=== PATIENT | male | born 1990 | race African-American/Black ===

== ENCOUNTER 2018-06-14 00:50 | Inpatient (IN) ==
[2018-06-14] MEDS ORDERED: LORazepam 0.5 MG Tablet PO ONE (01:30)
--- NOTE | 2018-06-14 01:34 | ED ---
HPI General Chief complaint: Psychiatric Symptoms Stated complaint: psych eval/Vsco Time Seen by Provider: 06/14/18 00:56 Source: patient and police Mode of arrival: EMS Limitations: no limitations History of Present Illness HPI Narrative: Patient presents to our facility under a Dia act/transfer from [facility]. Patient was Dia acted due to being a harm to himself due to being bipolar/schizophrenic and not being on medications for multiple months. Patient states that he has been wanting to harm himself or others. Patient also states that he has not slept in 3 days MD complaint: Reports medical clearance requested Alleged Intoxication: No Compliant with Home Medications: No Traumatic Symptoms: Reports denies traumatic injury and head injury Associated Symptoms: Denies chest pain, shortness of breath, palpitations, diaphoresis, confusion, fever/chills, headaches, anorexia and malaise Treatments Prior to Arrival: Reports none Home Medications Medication Instructions Recorded Confirmed No Known Home Medications 06/14/18 06/14/18 Allergies Allergy/AdvReac Type Severity Reaction Status Date / Time No Known Allergies Allergy Verified 06/14/18 00:59 Review of Systems ROS: all other systems reviewed are negative [facility] Medical History Medical History Bipolar disorder (Acute) Schizophrenia (Acute) Surgical History Surgical History No history of previous surgery (Acute) Social History Social History Substance History: Active Abuse Second Hand Smoke Exposure: No Smoking Status: Current every day smoker Tobacco Type: Cigarettes How Often Do You Have a Drink Containing Alcohol: 2 to 4 times a month Recent Travel in [facility] within the Last 8 Weeks: No Recent Out of Country Travel within the Last 8 Weeks: No Exam HENMT Head: normocephalic and atraumatic Nose: no nasal discharge and no epistaxis Mouth: moist mucous membranes Eyes Sclera: normal sclerae Pupils: PERRL Neck Neck: trachea midline and no JVD Resp Effort & Inspection: no use of accessory muscles Auscultation: clear to auscultation bilaterally Cardio Rate: regular rate Rhythm: regular rhythm Heart Sounds: no murmurs GI Inspection: non-distended Palpation: soft, no hepatosplenomegaly and nontender Skin General: dry skin (warm) Neuro General: alert and awake Cranial Nerves: other Speech: speech normal Motor: no movement abnormalities noted Extrem General: normal to inspection, no clubbing, no cyanosis and no edema Psych Mood: congruent mood Affect: normal affect Judgment: judgment good Course Initial Documented Vital Signs Temperature 98.2 F 06/14/18 01:14 Pulse Rate 67 06/14/18 01:14 Respiratory Rate 18 06/14/18 01:14 Blood Pressure 143/93 H 06/14/18 01:14 Pulse Oximetry 100 06/14/18 01:14 Last Documented Vital Signs Temperature 98.2 F 06/14/18 01:23 Pulse Rate 67 06/14/18 01:23 Respiratory Rate 18 06/14/18 01:23 Blood Pressure 143/93 H 06/14/18 01:23 Pulse Oximetry 100 06/14/18 01:23 Medical Decision Making MDM Narrative Medical decision making narrative: Patient presents to our facility under a Dia act/transfer from [facility]. Patient was Dia acted due to being a harm to himself due to being bipolar/schizophrenic and not being on medications for multiple months. Patient states that he has been wanting to harm himself or others. Patient also states that he has not slept in 3 days Patient's vital signs upon arrival are within normal limits. Blood pressure is 143/90, pulse is 67, temperature is 98.2, O2 sat is 100% on room air Lab work reviewed from earlier [facility]. White blood cell count is 6.5, hemoglobin is 14.6, creatinine is 1.19, BUN is 18.1, urine drug screen is negative, alcohol is negative Patient is asking for something to help him sleep/to help with his anxiety. Patient has no complaints upon arrival to our hospital Patient will receive 0.5 mg of Ativan Patient remains medically cleared Medical Screen Exam Complete: Yes Emergency Medical Condition: Yes Discharge Plan Discharge Disposition Patient Disposition: Sign Out(ED Internal Use Only) Discharge Condition Condition: Stable Discharge Details Diagnosis: Chronic schizophrenia, Acute psychosis Physicians Team ED Provider: Mauro Bose ED Midlevel Provider: Brenda Russell Primary Care Provider: Primary Care Elena Blanc Rxs /Orders / Referrals /Forms Prescriptions: No Action No Known Home Medications RF: 0 Status ED Status: Medically Cleared
[2018-06-14] MEDS ORDERED: Aluminum/Magnesium/Simethacone Susp 30 ML UDC PO PRN (10:50)
--- NOTE | 2018-06-14 10:53 | ED ---
HPI - Psych - General Time Seen by Psych Provider: 10:20 Source: patient, police Mode of arrival: EMS Limitations: no limitations - History of Present Illness MD complaint: other Onset (ago): day(s) Duration: constant History of same: Yes Relieving factors: medication Exacerbating factors: other Context: not taking psychiatric medications Associated psychiatric symptoms: other (Manic behavior) Associated symptoms: denies other symptoms Treatments prior to arrival: placed on mental health hold, other (Patient was medicated at [facility] with Ativan) If self harm: other (Denies any) - General Chief Complaint: Psychiatric Symptoms Stated Complaint: psych eval/Vsco Time Seen by Provider: 06/14/18 00:56 - History of Present Illness HPI Narrative: History of Present Illness HPI Narrative: Patient is a 27-year-old, single, -Nigerien male, with history of bipolar disorder, who presents to our facility under a Dia act/ transfer from [facility] under a professional certificate initiated by psychiatrist Dr Manny Bridges. The patient initially presented to the ED at [facility] accompanied by his girlfriend voluntarily and the girlfriend reported that the patient had been hearing occasional voices, not suicidal, not sleeping for the last [address] Bridges's documentation on the BA and states that the patient has been he has been labile, angry, irritable, significant deterioration in relationship with , expansive and erratic behavior, driving reckless. Review of documentation from Hospital [facility]. We have no previous history with this patient here at [facility]. Since his arrival here to [place] the patient has been singing, pacing, doing push-ups in his room. He has not slept. Patient is seen. He is initially very upbeat. States that he needs to go home because he needs to go to work and celebrate Concepcion with his children. He admits he has not been sleeping for the past 3 days but does not feel that this is any significant problem and that it does not affect him at all. He states "lady that is not your problem. Told to sometimes go without sleeping." He becomes angry very quickly and demands to be discharge because he does not believe that he has any problem. He also demands that I call his father to pick him up. Patient then begins to saying once again. He then refuses to answer any further questions or to proceed with this evaluation. I have contacted his father at [phone], Mr. Denver Valdes. The patient's father states that he does not believe the patient is safe to be discharge since he has had these previous episodes in the past. He also states that the patient refuses to take any kind of psychiatric medication and ask in a very erratic manner. He goes on to state that the patient has formulated charges against him in the past and that he has been under investigation for such charges. (Tyra Espinoza) - Related Data Home Medications Medication Instructions Recorded Confirmed No Known Home Medications 06/14/18 06/14/18 Allergies Allergy/AdvReac Type Severity Reaction Status Date / Time No Known Allergies Allergy Verified 06/14/18 00:59 [facility] - History History Provided By: Patient, Medical Record - Medical History Medical History: Medical History (Last Reviewed 06/14/18 @ 01:33 by Brenda Russell) Bipolar disorder Schizophrenia - Surgical History Surgical History: Surgical History (Last Reviewed 06/14/18 @ 01:33 by Brenda Russell) No history of previous surgery - Social History I have reviewed the patient's Social History: Yes - Tobacco History Second Hand Smoke Exposure: No Tobacco Use In Past 30 Days: Yes Smoking Status: Current every day smoker Tobacco Type: Cigarettes - Alcohol History How Often Do You Have a Drink Containing Alcohol: 2 to 4 times a month - Substance Use History Substance History: Active Abuse - Substance Use Type Marijuana Status: Active Route Used: Inhalation Frequency: 1x every 2 weeks Last Used: 1 week ago Reason for Use: Get High Alcohol Status: Active Route Used: By Mouth Frequency: 6 pack of beer about 1x a week - Travel History Recent Travel in the [facility] Within the Last 8 Weeks: No Recent Travel Out of the Country Within the Last 8 Weeks: No - Immunization History Tetanus Immunization: Unsure Psychiatric History - Psychiatric History Psychiatric Treatment History: History of Psychiatric Treatment, History of Hospitalization in a Psychiatric Facility History of Inpatient Treatment: Yes - Psychiatric History Patient refuses to provide any information to this handbook writer. As per records he has been treated for bipolar disorder in the past but is medication noncompliant. (Tyra Espinoza) - Family Psychiatric History Unknown (Tyra Espinoza) Physical Exam - General Limitations: no limitations Mental Status Examination Consciousness: Alert Orientation: x4 Motor Activity: Normal gait Speech: Rapid Language: Adequate Fund of Knowledge: Adequate Attention and Concentration: Easily distracted Memory: Unremarkable Mood: Angry, Irritable, Manic Affect: Other (labile) Thought Process & Associations: Circumstantial, Tangential Thought Content: Appropriate Hallucination Type: Other (denies but documetnaion indicates he has been experiencing A/H) Delusion Type: None Suicidal Ideation: No Suicidal Plan: No Suicidal Intention: No Homicidal Ideation: No Homicidal Plan: No Homicidal Intention: No Insight: Poor Judgment: Impulsive Initial Documented Vital Signs Temperature 98.2 F 06/14/18 01:14 Pulse Rate 67 06/14/18 01:14 Respiratory Rate 18 06/14/18 01:14 Blood Pressure 143/93 H 06/14/18 01:14 Pulse Oximetry 100 06/14/18 01:14 Last Documented Vital Signs Temperature 97.9 F 06/14/18 04:20 Pulse Rate 62 06/14/18 04:20 Respiratory Rate 18 06/14/18 04:20 Blood Pressure 149/87 H 06/14/18 04:20 Pulse Oximetry 99 06/14/18 04:20 MDM - Psych - Diagnosis (1) Bipolar disorder, manic Code(s): F31.10 - Bipolar disorder, current episode manic without psychotic features, unspecified Status: Acute - [facility] Narrative Medical decision making narrative: At the time of this evaluation the patient presents symptoms consistent with rosario including not sleeping for 3 days, hyperactivity, poor impulse control, lability of affect, engaging in risky behaviors such as driving recklessly. It is also alleged that the patient has not been taking any psychiatric medications. He has demonstrated lability of mood and hyperactivity since here in [facility]. He refused to engage in complete evaluation with this provider and was demanding to be released immediately. The patient is under a professional certificate by area psychiatrist Dr. Bridges. He will be admitted to inpatient psychiatry for further evaluation, stabilization, and safety (Tyra Espinoza)
[2018-06-14] MEDS ORDERED: Influenza (Quadrivalent) Vaccine 0.5 ML Syringe IM ONE (17:00)
[2018-06-15 09:16] LABS: Carbon Dioxide 26.1 meq/L (21.0-32.0); Potassium 3.9 meq/L (3.5-5.1)
[2018-06-15 09:20] LABS: Chol/HDL Ratio 3.72 Ratio; HDL Cholesterol 56.7 mg/dL (40.0-60.0)
--- NOTE | 2018-06-15 12:37 | P.HPPSY ---
Provisional Diagnosis Admission Date: June 14, 2018 10:55 Competence Certification of Person's Competence To Provide Express and Informed Consent I have personally examined Lennie Meadows, a person being served at [facility] on, June 15, 2018 1230. Express and informed consent means consent voluntarily given in writing, by a competent person, after sufficient explanation and disclosure of the subject matter involved to enable the person to make a knowing and willful decision without any element of force, fraud, deceit, duress, or other form of constraint or coercion. This person is 18 years of age or older, is not now known to be incompetent to consent to treatment with a guardian advocate, and does not have a health care surrogate or proxy currently making medical treatment decisions. I have found this person to be one of the following: [] Competent to provide express and informed consent, as defined above, for voluntary admission to this facility and is competent to provide express and informed consent for treatment. He/she has the consistent capacity to make well reasoned, willful, and knowing decisions concerning his or her medical or mental health treatment. The person fully and consistently understands the purpose of the admission for examination/placement and is fully capable of personally exercising all rights assured [place] Incompetent to provide express and informed consent to voluntary admission, and this is incompetent to provide express and informed consent to treatment. The person must be transferred to involuntary status and a petition for a guardian advocate filed with the Circuit Court. [X] Refusing to provide express and informed consent to voluntary admission but is competent to provide express and informed consent for treatment. The person must be discharged or transferred to involuntary status. Form shall be completed within 24 hours of a person's arrival at the receiving facility and filed in the clinical record of each person: 1. Admitted on a voluntary basis 2. Permitted to provide express and informed consent to his/her own treatment 3. Allowed to transfer from involuntary to voluntary status 4. Prior to permitting a person to consent to his or her own treatment after having been previously found incompetent to consent to treatment. History of Present Illness Capacity: Has capacity Chief Complaint: mood History of Present Illness: Patient is a 27-year-old black male with a history of bipolar disorder and possibly schizophrenia presenting here for signs of hypomania. Patient is a member of [facility] but admits to recent poor compliance with his medication. During this interview, he is oppositional and guarded with exam. Affect is blunted and there is psychomotor retardation. There is mild pressured speech Per nursing he slept 7 hours overnight. He denies recent depressed mood. Patient denies suicidal or homicidal ideation intent or plan. Patient says she does have auditory hallucinations of music later in the day after he hears that music. He denies any voices directly talking to him. No paranoid delusions were elicited. Though, he is vigilant on the unit. Patient is a 27-year-old, single, -Togolese male, with history of bipolar disorder, who presents to our facility under a Dia act/transfer from [facility] under a professional certificate initiated by psychiatrist Dr Manny Bridges. The patient initially presented to the ED at [facility] accompanied by his girlfriend voluntarily and the girlfriend reported that the patient had been hearing occasional voices, not suicidal, not sleeping for the last [address] Bridges's documentation on the BA and states that the patient has been he has been labile, angry, irritable, significant deterioration in relationship with , expansive and erratic behavior, driving reckless. Review of documentation from Hospital [facility]. We have no previous history with this patient here at [facility]. Since his arrival here to [facility] the patient has been singing, pacing, doing push-ups in his room. He has not slept. Past psych: Denies any admissions to the [facility]. Patient goes for outpatient treatment to [facility]. Past medications include Abilify, Seroquel, Depakote. Patient feels that Seroquel makes him too sleepy and he does not take it. Patient did well on Latuda in the past. He began with psychiatry after a suicide attempt in 2012 where he pointed a gun at himself. He does not have anymore access to guns. Past medical: See chart Past Famhx: Denies Past Social: Patient uses alcohol and cannabis sporadically. He has a daughter who lives with him. 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 He is not on disability. Patient was discharged honorably from the [employer] in 2013 after serving a year - Inpatient Certification I certify that the inpatient services were ordered in accordance with Medicare regulations governing the order. This includes certification that hospital inpatient services are reasonable and necessary and in the case of services not specified as inpatient-only under 42 CFR 419.22(n), that they are appropriately provided as inpatient services in accordance to with the 2-midnight benchmark under 43 CFR 412.3(e) I certify that inpatient psychiatric hospital services are medically necessary. Evaluation and treatment and/or diagnostic testing are expected to improve the patient's condition. The patient needs on a daily basis, active treatment furnished directly by or requiring the supervision of inpatient psychiatric facility personnel. Estimated Total Length of Stay (Days): 8 Plans for Post Hospital Care: Home Review of Systems All other systems reviewed negative except as stated in HPI PMFSH - History History Provided By: Patient - Medical History Medical History: Medical History (Last Reviewed 06/14/18 @ 01:33 by Brenda Russell) Bipolar disorder Schizophrenia - Surgical History Surgical History: Surgical History (Last Reviewed 06/14/18 @ 01:33 by Brenda Russell) No history of previous surgery - Tobacco History Second Hand Smoke Exposure: Yes Tobacco Use In Past 30 Days: Yes Smoking Status: Current every day smoker Tobacco Type: Cigarettes - Alcohol History How Often Do You Have a Drink Containing Alcohol: 2 to 4 times a month - Substance Use History Substance History: Active Abuse - Substance Use Type Marijuana Status: Active Route Used: Inhalation Frequency: daily Last Used: this week sometime Reason for Use: Calm Down, Feels Good, Socialization Alcohol Status: Active Route Used: By Mouth Frequency: 2-4 times a month Reason for Use: Calm Down, Feels Good, Socialization - Travel History Recent Travel in the [place] Within the Last 8 Weeks: No Recent Travel Out of the Country Within the Last 8 Weeks: No - Immunization History Tetanus Immunization: Unsure Hx Influenza Vaccine This Season: No Medications and Allergies Active Medications: Active Medications Al Hydrox/Mg Hydrox/Simethicone (Mag-Al Plus Susp Liq) 30 ml PO Q6H PRN PRN Reason: DYSPEPSIA Al Hydroxide/Mg Hydroxide (Milk Of Magnesia Liq) 30 ml PO Q12H PRN PRN Reason: Mild Constipation Diphenhydramine HCl (Benadryl Inj) 50 mg IM Q6H PRN PRN Reason: For mild anxiety and/or EPS Lactulose (Lactulose Liq) 30 ml PO DAILY PRN PRN Reason: SEVERE CONSITIPATION Lorazepam (Ativan Inj) 1 mg IM Q6H PRN PRN Reason: MODERATE TO SEVERE ANXIETY Lurasidone HCl (Latuda) 60 mg PO DAILY HERLINDA Sennosides (Senokot) 17.2 mg PO Q12H PRN PRN Reason: Moderate Constipation Ziprasidone (Geodon Inj) 10 mg IM Q12H PRN PRN Reason: SEVERE AGITATION Allergies Allergy/AdvReac Type Severity Reaction Status Date / Time No Known Allergies Allergy Verified 06/14/18 00:59 Home Medications Medication Instructions Recorded Confirmed Type No Known Home Medications 06/14/18 06/14/18 History Results - Labs CBC & Chem 7: 06/15/18 08:23 Labs: Laboratory Results - last 24 hr 06/15/18 08:23 Sodium 141 Potassium 3.9 Chloride 106 Carbon Dioxide 26.1 Anion Gap 9 BUN 16 Creatinine 1.28 Estimated GFR 83 L Random Glucose 104 Calcium 9.0 Triglycerides 73 Cholesterol 211 H LDL Cholesterol, Calc 140 H HDL Cholesterol 56.7 Cholesterol/HDL Ratio 3.72 Exam Vital signs: Vital Signs 06/15/18 06:00 Temperature 97.8 F Pulse Rate 91 H Respiratory Rate 19 Blood Pressure 144/90 H Pulse Oximetry 96 Intake & Output 06/14/18 06/15/18 06/15/18 18:59 06:59 18:59 Weight 78.5 kg Other: Weight On Admission 78.5 kg Mental Status Examination Appearance: Appropriate Consciousness: Vigilant Orientation: x4 Motor Activity: Normal gait Speech: Rapid Language: Adequate Fund of Knowledge: Adequate Attention and Concentration: Adequate Memory: Unremarkable Mood: Appropriate Affect: Blunt Thought Process & Associations: Disorganized Thought Content: Appropriate, Hallucinations Hallucination Type: Auditory (At times he hears music), Other (denies but documetnaion indicates he has been experiencing A/H) Delusion Type: None Suicidal Ideation: No Suicidal Plan: No Suicidal Intention: No Homicidal Ideation: No Homicidal Plan: No Homicidal Intention: No Insight: Poor Judgment: Poor Assessment and Plan - Assessment (1) Bipolar disorder, manic Code(s): F31.10 - Bipolar disorder, current episode manic without psychotic features, unspecified Status: Acute - Plan Plan: It appears that manic symptoms have improved since his initial admission. Either way, psychoeducation was done about the importance of compliance with medication given his history of bipolar and possible schizophrenia. Patient gives consent for Latuda 60 mg daily with food. As needed trazodone for sleep. Refuses to sign voluntary, will be petitioned Justification for Continued Inpatient Stay: Patient would decompensate in a less restrictive setting
--- NOTE | 2018-06-15 16:32 | P.PNPSY ---
Subjective Chief Complaint: mood Remarks: The patient was seen for the purpose of providing a second opinion to the Dia act order. Chart reviewed to include emergency department paperwork and the attending's history and physical. Patient discussed with nursing staff; we reviewed the patient's mood, thoughts, and behaviors since arrival to the unit. The patient reportedly has been cooperative with care but displaying odd behaviors such as exercising in the day room. Patient was seen at bedside this afternoon where he was laying in bed with the covers pulled over his head. He responded quickly to name and did not appear to be sleeping. He acknowledges having an episode of decreased need for sleep because concern for his girlfriend and he blames her for being Dia acted. He admits to recurrent episodes in the past diagnosis of bipolar disorder but he minimized the severity of the symptoms and he expressed a belief that he did not need psychiatric treatment. Review of Systems All other systems reviewed negative except as stated in HPI Mental Status Examination Appearance: Appropriate Consciousness: Vigilant Orientation: x4 Motor Activity: Normal gait Speech: Rapid Language: Adequate Fund of Knowledge: Adequate Attention and Concentration: Adequate Memory: Unremarkable Mood: Appropriate Affect: Blunt Thought Process & Associations: Disorganized Thought Content: Appropriate, Hallucinations Hallucination Type: Auditory (At times he hears music), Other (denies but documetnaion indicates he has been experiencing A/H) Delusion Type: None Suicidal Ideation: No Suicidal Plan: No Suicidal Intention: No Homicidal Ideation: No Homicidal Plan: No Homicidal Intention: No Insight: Poor Judgment: Poor Assessment and Plan - Assessment (1) Bipolar disorder, manic Code(s): F31.10 - Bipolar disorder, current episode manic without psychotic features, unspecified Status: Acute - Plan Plan: Initial assessment and plan: It appears that manic symptoms have improved since his initial admission. Either way, psychoeducation was done about the importance of compliance with medication given his history of bipolar and possible schizophrenia. Patient gives consent for Latuda 60 mg daily with food. As needed trazodone for sleep. Refuses to sign voluntary, will be petitioned The second opinion for Dia act: The patient was seen for second opinion and he admits to recent symptoms of rosario but his lack of insight as to the seriousness of the symptoms and the need for treatment is concerning and I concur that he requires continued inpatient stabilization and observation. Justification for Continued Inpatient Stay: Patient remains an elevated risk for self-harm by self neglect and will require further inpatient stabilization and preparation of a safe discharge plan. Moving patient to a less restrictive environment at this time may result in decompensation.
[2018-06-16 06:16] VITALS: BP 136/86; PULSE 77; RESP 18; TEMP 97.6; O2SAT 99
[2018-06-16 07:49] LABS: Hemoglobin A1c 4.6 % (4.3-6.0)
--- NOTE | 2018-06-16 11:24 | P.DSPSY ---
Psychiatry Discharge Summary Inpatient Psychiatric care?: Yes Advance Directives: No Mental Health Advance Directive: No Health Care Proxy: No - Admission Admission Date: June 14, 2018 10:55 - Admission Diagnosis (1) Chronic schizophrenia Code(s): F20.9 - Schizophrenia, unspecified Brief History: Patient is a 27-year-old black male with a history of bipolar disorder and possibly schizophrenia presenting here for signs of hypomania. Patient is a member of [facility] but admits to recent poor compliance with his medication. During this interview, he is oppositional and guarded with exam. Affect is blunted and there is psychomotor retardation. There is mild pressured speech Per nursing he slept 7 hours overnight. He denies recent depressed mood. Patient denies suicidal or homicidal ideation intent or plan. Patient says she does have auditory hallucinations of music later in the day after he hears that music. He denies any voices directly talking to him. No paranoid delusions were elicited. Though, he is vigilant on the unit. Patient is a 27-year-old, single, -[place] male, with history of bipolar disorder, who presents to our facility under a Dia act/transfer from [facility] under a professional certificate initiated by psychiatrist Dr Manny Bridges. The patient initially presented to the ED at [facility] accompanied by his girlfriend voluntarily and the girlfriend reported that the patient had been hearing occasional voices, not suicidal, not sleeping for the last [address] Bridges's documentation on the BA and states that the patient has been he has been labile, angry, irritable, significant deterioration in relationship with , expansive and erratic behavior, driving reckless. Review of documentation from Hospital [facility]. We have no previous history with this patient here at [facility]. Since his arrival here to [facility] the patient has been singing, pacing, doing push-ups in his room. He has not slept. Past psych: Denies any admissions to the [facility]. Patient goes for outpatient treatment to [facility]. Past medications include Abilify, Seroquel, Depakote. Patient feels that Seroquel makes him too sleepy and he does not take it. Patient did well on Latuda in the past. He began with psychiatry after a suicide attempt in 2012 where he pointed a gun at himself. He does not have anymore access to guns. Past medical: See chart Past Famhx: Denies Past Social: Patient uses alcohol and cannabis sporadically. He has a daughter who lives with him. 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 He is not on disability. Patient was discharged honorably from the [facility] in 2013 after serving a year Tobacco Use In Past 30 Days: Yes How Often Do You Have a Drink Containing Alcohol: 2 to 4 times a month Hospital Course: Hospital course: Patient was admitted to a locked, inpatient psychiatric unit. Appropriate precautions were in place throughout patient's hospital stay. Patient was seen and examined on the unit by psychiatry and also visited by counselor. Psychotropic medications were adjusted; he was restarted on Latuda 60 mg/day which has been in effective treatment for him in the past. There was a good response to treatment noted by nursing and provider observations, and the patient reported improvements in mood, anxiety, and there was no evidence of any suicidality or homicidality at time of discharge. The patient did have some bizarre behaviors and appeared to respond to internal stimuli at times during this admission but there is no signs of aggression and or self- injurious behaviors. The patient's hospital course was reviewed with his father as well as his girlfriend and they provide corroborating information that the patient has done very well in the past with Latuda and usually is back to baseline within 5-7 days. The patient's girlfriend is very supportive of his treatment and care and expressed comfort with his intermittently bizarre behavior and agrees to bring him back to the emergency room or will call 911 should his condition worsen. Psychiatric follow-up as arranged by counselor. I have counseled the patient to abstain from substances of abuse including cannabis and have counseled patient to return to the psychiatric emergency room for any concerning symptoms as part of a general safety plan. - Discharge Discharge Date: 06/16/18 - Discharge Diagnosis (1) Chronic schizophrenia Code(s): F20.9 - Schizophrenia, unspecified Status: Acute Discharge Disposition: Home - Discharge Instructions Discharge Diet: Regular Diet Activities You Can Perform: Regular- No Restrictions - Discharge Time > 30 minutes Mental Status Examination Appearance: Appropriate Consciousness: Vigilant Orientation: x4 Motor Activity: Normal gait Speech: Rapid Language: Adequate Fund of Knowledge: Adequate Attention and Concentration: Adequate Memory: Unremarkable Mood: Appropriate Affect: Blunt Thought Process & Associations: Intact, Logical, Goal directed, Disorganized Thought Content: Appropriate, Hallucinations Hallucination Type: None Delusion Type: None Suicidal Ideation: No Suicidal Plan: No Suicidal Intention: No Homicidal Ideation: No Homicidal Plan: No Homicidal Intention: No Insight: Fair Judgment: Impulsive Discharge/Advance Care Plan - Results Vital Signs: Last Vital Signs Temp 97.6 F 06/16/18 06:16 Pulse 77 06/16/18 06:16 Resp 18 06/16/18 06:16 BP 136/86 06/16/18 06:16 Pulse Ox 99 06/16/18 06:16 Lab Results: Abnormal Lab Results 06/15/18 08:23 Hemoglobin A1c 4.6 Laboratory Results Hemoglobin A1c 4.6 % (4.3-6.0) 06/15/18 08:23 Triglycerides 73 mg/dL (42-150) 06/15/18 08:23 Cholesterol 211 mg/dL (120-200) H 06/15/18 08:23 LDL Cholesterol, Calc 140 mg/dL (0-99) H 06/15/18 08:23 HDL Cholesterol 56.7 mg/dL (40.0-60.0) 06/15/18 08:23 Summary of Procedures: None ordered Pending Results: None - Medications Number of antipsychotic medications at discharge: 1 - Discharge Care Plan Goals to Promote Your Health: * To prevent worsening of your condition and complications * To maintain your health at the optimal level Directions to Meet Your Goals: Take your medications as prescribed Follow your dietary instruction Follow activity as directed Keep your appointments as scheduled Take your immunizations and boosters as scheduled If your symptoms worsen call your PCP, if no PCP go to Urgent Care Center or Emergency Room For 14/01 questions related to your inpatient stay or results of tests pending at discharge, please contact Dr. Kofi Stanley MD at Smoking is Dangerous to Your Health. Avoid second hand smoking
== END 2018-06-16 14:10 | disposition home or self-care (01) ==
LOC: NEPJ 00:50 → NEDA 10:55 → H270 11:12
PROVIDERS: ADMIT Psychiatry & Neurology Psychiatry; ATTEND Psychiatry & Neurology Psychiatry